=== PATIENT | female | born 1995 | race Caucasian/White ===

== ENCOUNTER 2017-08-27 05:38 | Emergency (ER) | payer OTHER ==
[~2017-08-27] VITALS: Ht 162.6 cm; Wt 55.0 kg
[2017-08-27 05:43] VITALS: BP 129/74; PULSE 74; RESP 16; TEMP 97.9; O2SAT 100
[2017-08-27] MEDS ORDERED: TETANUS/DIPHTHERIA TOXOID ADULT 0.5 ML VIAL IM ONE (06:00)
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
[2017-08-27] MEDS ORDERED: ACETAMINOPHEN 500 MG CPLT PO ONE (07:00)
== END 2017-08-27 07:19 ==
LOC: NEPD 05:38
DX: S00.83XA Contusion of other part of head, initial encounter (principal); M54.2 Cervicalgia; Y09 Assault by unspecified means; Z23 Encounter for immunization
CPT/HCPCS: 70486; 90471; 90714